=== PATIENT | female | born 1950 | race Caucasian/White ===

== ENCOUNTER 2016-05-30 11:48 | Emergency (ER) | payer OTHER, MEDICARE ==
[2016-05-30] MEDS ORDERED: ACETAMINOPHEN 500 MG TABLET PO ONE (12:41)
[2016-05-30] MEDS ORDERED: DIPHTH,PERTUSS(ACELL),TET VAC 0.5 ML VIAL IM ONE ×2 (12:41→12:59)
--- NOTE | 2016-05-30 12:55 | ERNOTE ---
Upper Extremity HPI - Narrative Date of Service: 05/30/16 - General Extremities Pain Location: hand: left Time Seen by Provider: 05/30/16 12:32 Source: patient, RN notes reviewed Exam Limitations: no limitations - Immun/Allergies/Home Medications Immunizations: IMMUNIZATION HX Immunizations Up to Date Yes History of Influenza Vaccine No Hx Pneumococcal Vaccination No Allergies/Adverse Reactions: Allergies Allergy/AdvReac Type Severity Reaction Status Date / Time sulfamethoxazole Allergy Intermediate Hives Verified 05/30/16 11:56 [From Bactrim] trimethoprim [From Bactrim] Allergy Intermediate Hives Verified 05/30/16 11:56 clarithromycin [From Biaxin] Allergy Mild Diarrhea Verified 05/30/16 11:56 Tetanus Vaccines & Toxoid Allergy Verified 05/30/16 11:56 Home Medications: HOME MEDICATIONS Levothyroxine Sodium [Synthroid] 125 mcg PO DAILY 05/30/16 [Last Taken Unknown] PARoxetine HCL [Paxil] 20 mg PO DAILY 05/30/16 [Last Taken Unknown] - History of Present Illness Narrative: 65 y/o female ambulatory to the ED for a left hand injury. She was working at [employer] when she tripped and fell. She attempted to catch herself with the left hand. She also reports minor abrasions to the hand and striking her left cheek when she fell. She denies any LOC or headache. She is right handed. Date (Duration): 05/30/16 Occurred: just prior to arrival Location of Incident: work Method of Injury: Reports: fell Reason for Fall: Reports: tripped Loss of Consciousness: Reports: no loss of consciousness Associated Symptoms: Denies: tingling, weakness, numbness distally Other Injuries: Reports: face Prior Treament: Denies: recently seen, similar symptoms before Review of Systems - Review of Systems Constitutional: Present: recent illness. Absent: fatigue, malaise EYE: Absent: eye pain, vision changes ENT: Absent: ear discharge, nasal drainage, other - dental injury Respiratory: Absent: shortness of breath, cough Cardiology: Absent: chest pain, syncope Gastrointestinal/Abdominal: Absent: nausea, vomiting Genitourinary: Present: no symptoms reported Musculoskeletal: Present: joint pain, joint swelling. Absent: back pain, neck pain Skin: Present: lumps. Absent: rash, lesions Neurological: Absent: headache, dizziness/light-headedness Endocrine: Present: no symptoms reported Hematologic/Lymphatic: Present: no symptoms reported Psych: Present: no symptoms reported - Patient's Past Medical History Patient History - Medical: Hypothyroidism Patient History - Cardiac/Respiratory: No pertinent hx Patient History - Cancer: No Hx of Cancer Patient History - Surgical Procedures: Tubal Ligation Patient History - Other: None LMP (females 10-50): Menopausal - Social History Living Situations: home Psych History: Hx of Depression Smoking Status: Never smoker Alcohol Use: occasionally Drug Use: none - Immunizations Immunizations Up to Date: No - tetanus not current, reports allergy to "horse serum" Hx Pneumococcal Vaccination: No History of Influenza Vaccine: No Physical Exam - Physical Exam General Appearance: Present: wd/wn, alert, no apparent distress Eye Exam: Normal inspection: bilateral, PERRL: bilateral, EOMI: bilateral Ears, Nose, Throat: Present: normal ENT inspection Neck: Present: normal inspection, nontender, supple, full range of motion Respiratory: Present: no respiratory distress, normal breath sounds, no accessory muscle use, lungs clear Cardiovascular/Chest: Present: regular rate, rhythm, no murmur, normal peripheral pulses Peripheral Pulses: N=norm/S=strong/W=weak/B=bound/A=absent: Radial (R): Normal, Radial (L): Normal Extremity Exam: Present: normal except - - ecchymosis and edema to left hand, 5th metacarpal, painful ROM Neurological Exam: Present: alert, oriented, normal mood/affect, no motor/ sensory deficits Skin Exam: Present: normal color, warm/dry, other - several small abrasions to left hand and wrist, mild erythema on left cheek ED Progress - Vital Signs Patient's Vital Signs:: I have reviewed the patient's vital signs. Vital Signs: Vital Signs 05/30/16 11:52 Temperature 36.4 C L Pulse Rate 75 Respiratory 16 Rate Blood Pressure 155/87 O2 Sat by Pulse 97 Oximetry - X-Ray X-Ray #1 X-Ray: hand Interpretation: Reviewed by me X-ray Comments: Technique: 3 views of the left hand obtained. Comparison: None. Findings: Exam shows an oblique fracture through the metadiaphyseal region of the proximal aspect of the left fifth metacarpal. I do not see intra-articular extension. There is mild impaction with minimal displacement. No other fractures identified. There are degenerative changes at the first carpometacarpal joint. There are degenerative changes of several the interphalangeal joints. IMPRESSION: MILDLY IMPACTED MINIMALLY DISPLACED OBLIQUE FRACTURE PROXIMAL ASPECT LEFT FIFTH METACARPAL. Electronically signed by Jim Orr M.D.. - Progress/Reassessment Chief Complaint: Hand Injury/Pain Progress:: Improved Procedures Location: Left hand Pre-Proc Neuro Vasc Exam: normal Hand-Made Type: ocl Splint: Ulnar gutter Alignment good: Yes Splint applied by: Nurse Post-Proc Neuro Vasc Exam: normal Complications: Pt coretta procedure well Plan - Plan Plan: Orthopedics contacted for follow up appointment, they will contact her with a follow up appointment time after reviewing her records. Departure Clinical Impression: Fracture of metacarpal Qualifiers: Encounter type: initial encounter Metacarpal bone: fifth Fracture type: closed Metacarpal location: base Fracture alignment: displaced Laterality: left Qualified Code(s): S62.317A - Displaced fracture of base of fifth metacarpal bone. left hand, initial encounter for closed fracture - Departure Disposition: Home Follow Up Needed Condition: Good Instructions: Metacarpal Fracture Additional Instructions: See occupational health instruction sheet Referrals: Carroll Villasenor MD [Staff Physician] -
[2016-05-30 13:13] VITALS: BP 144/78
--- OUTSIDE RECORDS SUMMARY | 2016-05-30 13:16 | XMS REPORT | Continuity of Care Document ---
:1950 Author Organization [facility] ([facility]) [place] [address] Phone [phone] Care Team Providers Name Role Phone Janel Noyola Primary Care Provider [phone] Source Comments This disclosure is being made pursuant to the Care Everywhere program, applicable federal and state laws, and may not contain all informaitonavailable regarding this patient.[facility] ([facility]) Active Allergies and Adverse Reactions Allergen Noted Date Severity Reactions Comments Methimazole Pruritus Tetanus Toxoid, Adsorbed Urticaria (Hives),Angioedema Current Medications Prescription Sig. Disp. Refills Start Date End Date Status PARoxetine (PAXIL) 10 take 5 mg by mouth Active mg tablet daily. ALPRAZolam (XANAX) 0.5 take 0.5 mg by mouth Active mg tablet as needed for Sleep. aspirin 81 mg tablet take 81 mg by mouth Active daily. CALCIUM take 1,200 mg by Active CARBONATE/VITAMIN D2 mouth daily. (CALCIUM + VITAMIN D PO) Magnesium 250 mg Tab take 1 Tab by mouth Active daily. pyridoxine (VITAMIN take 100 mg by mouth Active B-6) 100 mg tablet daily. cyanocobalamin (B-12 take 1,000 mcg by Active DOTS) tablet mouth daily. Chromium Picolinate take 500 mcg by mouth Active 500 mcg Cap daily. levothyroxine 112 mcg Take 1 Tab by mouth. 45 Tab 11 04/14/2010 Active tablet Please take one tab Mon- Sat and on sundays take 2 tab. Indications: Hypothyroidism Active Problems Problem Noted Date Hypothyroidism 09/24/2008 Depression 09/24/2008 Social History Tobacco Use Types Packs/Day Years Used Date Never Assessed Last Filed Vital Signs Vital Sign Reading Time Taken Blood Pressure 125/70 12/30/2008 2:32 PM CDT Pulse 68 12/30/2008 2:32 PM CDT Temperature 36.1 C (97 F) 12/30/2008 2:32 PM CDT Respiratory Rate 16 02/09/2004 8:58 AM SCREW DOWN Height 1.647 m (5' 4.86") 12/30/2008 2:32 PM CDT Weight 84.1 kg (185 lb 6.5 oz) 12/30/2008 2:32 PM CDT Body Mass Index 31 12/30/2008 2:32 PM CDT Oxygen Saturation - - Plan of Care Health Maintenance Due Date Last Done Comments HCV Screening 1950 Hepatitis B Vaccine (1 of 3 - Primary Series) 1950 Lipid Disorder Screening 1968 Cervical Cancer Screening 1980 Mammogram 1990 Colonoscopy 11/13/2000 Zoster Vaccine 2010 Influenza Vaccine: Seasonal (#1) 10/10/2015 Osteoporosis Screening (DXA Bone Density) 11/15/2015 Pneumococcal Vaccine (1 of 2 - PCV13) 11/15/2015 Results from Last 3 Months Not on file
== END 2016-05-30 13:07 | disposition home or self-care (01) ==
LOC: ER 11:48
PROC: 2W3FX1Z Immobilization of Left Hand using Splint (ICD-10-PCS; principal; 2016-05-30)
DX: S62.317A Displaced fracture of base of fifth metacarpal bone, left hand, initial encounter for closed fracture (principal); W01.0XXA Fall on same level from slipping, tripping and stumbling without subsequent striking against object, initial encounter; Y93.89 Activity, other specified; Y92.69 Other specified industrial and construction area as the place of occurrence of the external cause; Y99.0 Civilian activity done for income or pay; Z23 Encounter for immunization; S60.512A Abrasion of left hand, initial encounter